=== PATIENT | male | born 1980 | race American Indian/Alaskan Native ===

== ENCOUNTER 2017-04-04 19:09 | Emergency (ER) | payer OTHER ==
[2017-04-04 19:41] VITALS: BP 123/81
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
== END 2017-04-05 00:17 | disposition home or self-care (01) ==
LOC: ED 19:09
DX: S46.812A Strain of other muscles, fascia and tendons at shoulder and upper arm level, left arm, initial encounter (principal); S29.012A Strain of muscle and tendon of back wall of thorax, initial encounter; F17.200 Nicotine dependence, unspecified, uncomplicated; V49.19XA Passenger injured in collision with other motor vehicles in nontraffic accident, initial encounter; Y93.89 Activity, other specified; Y92.89 Other specified places as the place of occurrence of the external cause; Y99.8 Other external cause status
CPT/HCPCS: 99282

== ENCOUNTER 2017-12-17 12:25 | Emergency (ER) | payer SELFPAY ==
[2017-12-17 12:36] VITALS: BP 156/102
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
[2017-12-17] MEDS ORDERED: MOTRIN PO ONE (13:19)
--- NOTE | 2017-12-17 13:37 | XRay Report ---
RIGHT HAND, 3 views: History: Pain and swelling Normal bone mineralization. Subtle nondisplaced fractures are suspected through the fourth and fifth metacarpal necks. No calcified callus is identified. Chronic healed injury of the right fifth metacarpal is also suspected. The remaining bony structures and joint spaces are intact. Mild soft tissue swelling is noted. IMPRESSION: Fourth and fifth metacarpal neck fractures.
== END 2017-12-17 13:54 | disposition home or self-care (01) ==
LOC: ED 12:25
DX: S62.306A Unspecified fracture of fifth metacarpal bone, right hand, initial encounter for closed fracture (principal); S62.304A Unspecified fracture of fourth metacarpal bone, right hand, initial encounter for closed fracture; F17.200 Nicotine dependence, unspecified, uncomplicated; W50.3XXA Accidental bite by another person, initial encounter; Y93.9 Activity, unspecified; Y92.89 Other specified places as the place of occurrence of the external cause; Y99.8 Other external cause status
CPT/HCPCS: 99284

== ENCOUNTER 2018-05-01 03:15 | Emergency (ER) | payer SELFPAY ==
[2018-05-01 03:34] VITALS: BP 135/79
[2018-05-01 06:10] LABS: Hematocrit 43.7 % (35.5-45.6); Hemoglobin 14.7 gm/dl (11.8-15.2); Mean Corpuscular HGB Conc 34 % (32-34); Mean Corpuscular Volume 86 fl (84-94); Platelet Count 281 K/mm3 (140-440); Red Blood Count 5.11 M/mm3 (3.65-5.03)
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
[2018-05-01 06:34] LABS: BUN/Creatinine Ratio 13; Blood Urea Nitrogen 13 mg/dL (9-20); Calcium 9.2 mg/dL (8.4-10.2); Hemolysis Index 6
[2018-05-01] MEDS ORDERED: MARCAINE 0.25% INFILTRATI ONE (08:11)
[2018-05-01] MEDS ORDERED: XYLOCAINE 1% 20 mL ONE (08:11)
[2018-05-01] MEDS ORDERED: NACL 0.9% 500 ML IR ONE (08:12)
[2018-05-01] MEDS ORDERED: HYDROGEN PEROXIDE ONE (08:29)
[2018-05-01] MEDS ORDERED: TYLENOL PO ONE (09:15)
== END 2018-05-01 09:30 | disposition left against medical advice (07) ==
LOC: ED 03:15
DX: S01.511A Laceration without foreign body of lip, initial encounter (principal); F17.200 Nicotine dependence, unspecified, uncomplicated; F10.120 Alcohol abuse with intoxication, uncomplicated; Y35.891A Legal intervention involving other specified means, law enforcement official injured, initial encounter; Y93.02 Activity, running; Y92.89 Other specified places as the place of occurrence of the external cause; Y99.8 Other external cause status
CPT/HCPCS: 12011; 36415; 80048; 82550; 85027; 99283; G0480; 80320